=== PATIENT | female | born 1960 | race Caucasian/White ===

== ENCOUNTER 2017-04-14 11:34 | Inpatient (IN) | payer OTHER, MEDICAID ==
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
[2017-04-14 12:26] LABS: % IMMATURE GRANULYOCYTES 0.2 % (0.0-1.1); ABSOLUTE IMMATURE GRANULOCYTES 0.03 10^3/uL (0.00-0.10); ADD DIFF? NO; ADD MORPH? NO; ADD SCAN? NO; ATYPICAL LYMPHOCYTE FLAG 0 (0-99); FRAGMENT RBC FLAG 0 (0-99); HEMATOCRIT 48.4 % (38.0-47.0); HEMOGLOBIN 16.3 g/dL (12.6-16.3); LEFT SHIFT FLG 0 (0-99); LIPEMIA HEMOLYSIS FLAG 80 (0-99); MEAN CELL HEMOGLOBIN 31.2 pg (27.9-34.1); MEAN CELL HEMOGLOBIN CONCENTR. 33.7 g/dL (32.4-36.7); MEAN CELL VOLUME 92.5 fL (81.5-99.8); MEAN PLATELET VOLUME 10.1 fL (8.7-11.7); PLATELET CLUMPS FLAG 0 (0-99); PLATELET COUNT 255 10^3/uL (150-400); RED BLOOD CELL COUNT 5.23 10^6/uL (4.18-5.33); RED CELL DISTRIBUTION WIDTH 12.7 % (11.5-15.2)
[2017-04-14 13:20] LABS: ANION GAP 14 mEq/L (8-16); CALCIUM 11.1 mg/dL (8.5-10.4); CARBON DIOXIDE 23 mEq/l (22-31); CHLORIDE 105 mEq/L (97-110); GLOMERULAR FILTRATION RATE 58; GLUCOSE 95 mg/dL (70-100); POTASSIUM 4.3 mEq/L (3.5-5.2); SODIUM 142 mEq/L (134-144)
[2017-04-14 13:58] LABS: ETHANOL SERUM < 10 mg/dL (0-10); SALICYLATE < 1.0 mg/dL (2.0-20.0)
[2017-04-14] MEDS ORDERED: LORazepam 1 MG TAB PO ONE (14:35)
[2017-04-14] MEDS ORDERED: HALOPERIDOL 5 MG TAB PO ONE (19:20)
[2017-04-14] MEDS ORDERED: DIVALPROEX ER 500 MG TAB PO ONE (19:21)
[2017-04-14 19:37] LABS: ALANINE AMINOTRANSFERASE 40 IU/L (9-52); ALBUMIN 4.4 g/dL (3.5-5.0); ALKALINE PHOSPHATASE 74 IU/L (38-126); ASPARTATE AMINOTRANSFERASE 29 IU/L (14-46); BILIRUBIN,TOTAL 0.9 mg/dL (0.1-1.4); BILIRUBIN-CONJUGATED 0.5 mg/dL (0.0-0.5); BILIRUBIN-UNCONJUGATED 0.4 mg/dL (0.0-1.1); LITHIUM 0.6 mEq/L (0.6-1.2); TOTAL PROTEIN 7.3 g/dL (6.3-8.2)
[2017-04-14] MEDS ORDERED: MAG HYDROX/AL HYDROX/SIMETH 30 ML UDCUP PO PRN (22:37)
[2017-04-14] MEDS ORDERED: MAGNESIUM HYDROXIDE 30 ML UDCUP PO PRN (22:37)
[2017-04-14] MEDS ORDERED: OLANZapine 5 MG TAB PO PRN (22:40)
[2017-04-15] MEDS: ACETAMINOPHEN 325 MG TAB PO PRN (04:00)
[2017-04-15] MEDS ORDERED: FLU VACC QS 2017-18 (3YR+)/PF 0.5 ML SYR (FLUARIX QUAD) IM ONE ×2 (08:25→10:29)
[2017-04-15] MEDS ORDERED: LORazepam 1 MG TAB PO PRN (14:35)
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
[2017-04-15] MEDS: DIVALPROEX ER 500 MG TAB PO SCH (16:28)
[2017-04-15] MEDS: HALOPERIDOL 5 MG TAB PO SCH (16:29)
[2017-04-15] MEDS: BENZTROPINE MESYLATE 1 MG TAB PO SCH (16:31)
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
[2017-04-15] MEDS: LORazepam 1 MG TAB PO PRN (17:46)
[2017-04-15] MEDS: LITHIUM CARBONATE ER 300 MG TAB PO SCH (20:43)
[2017-04-16] MEDS ORDERED: LEVOTHYROXINE 25 MCG TAB PO SCH (06:00)
[2017-04-16] MEDS: DIVALPROEX ER 500 MG TAB PO SCH ×2 (07:30→16:24)
[2017-04-16] MEDS: BENZTROPINE MESYLATE 1 MG TAB PO SCH ×2 (07:37→16:25)
[2017-04-16] MEDS: LITHIUM CARBONATE ER 300 MG TAB PO SCH ×2 (07:37→21:17)
[2017-04-16] MEDS: ACETAMINOPHEN 325 MG TAB PO PRN ×3 (07:37→21:16)
[2017-04-16] MEDS: HALOPERIDOL 5 MG TAB PO SCH ×2 (07:38→16:25)
[2017-04-16 07:45] LABS: % IMMATURE GRANULYOCYTES 0.2 % (0.0-1.1); ABSOLUTE IMMATURE GRANULOCYTES 0.02 10^3/uL (0.00-0.10); ADD DIFF? NO; ADD MORPH? NO; ADD SCAN? NO; ATYPICAL LYMPHOCYTE FLAG 0 (0-99); FRAGMENT RBC FLAG 0 (0-99); HEMATOCRIT 51.6 % (38.0-47.0); HEMOGLOBIN 16.8 g/dL (12.6-16.3); LEFT SHIFT FLG 0 (0-99); LIPEMIA HEMOLYSIS FLAG 80 (0-99); MEAN CELL HEMOGLOBIN 31.4 pg (27.9-34.1); MEAN CELL HEMOGLOBIN CONCENTR. 32.6 g/dL (32.4-36.7); MEAN CELL VOLUME 96.4 fL (81.5-99.8); PLATELET CLUMPS FLAG 20 (0-99); PLATELET COUNT 226 10^3/uL (150-400); RED BLOOD CELL COUNT 5.35 10^6/uL (4.18-5.33); RED CELL DISTRIBUTION WIDTH 12.6 % (11.5-15.2)
[2017-04-16 08:33] LABS: ANION GAP 12 mEq/L (8-16); CALCIUM 10.1 mg/dL (8.5-10.4); CARBON DIOXIDE 26 mEq/l (22-31); CHLORIDE 110 mEq/L (97-110); CREATININE 0.9 mg/dL (0.6-1.0); GLOMERULAR FILTRATION RATE > 60; GLUCOSE 79 mg/dL (70-100); POTASSIUM 4.5 mEq/L (3.5-5.2); SODIUM 148 mEq/L (134-144)
[2017-04-16 10:50] LABS: HEMOGLOBIN A1C 5.2 % (4.0-6.0)
--- NOTE | 2017-04-16 13:35 | SOAPPROG ---
SOAP Progress Note Assessment/Plan: Assessment: Plan: 04/16/17 13:35 Remains acutely psychotic. CCM. Subjective: Pt seen, discussed with staff. Remains nonsensical, disorganized, pressured, delusional. Compliant with meds. Offers no c/o's. Objective: Vital Signs Temp Pulse Resp BP Pulse Ox 36.6 C 96 14 125/57 H 89 L 04/15/17 06:00 04/16/17 06:00 04/16/17 06:00 04/16/17 06:00 04/16/17 06:00 Laboratory Results 04/16/17 04:30 04/16/17 04:30 MSE: Moderately agitated, pleasant and coop. Affect is expansive, elevated. Mood is "good." TP disorganized. TC reveals paranoid and erotomanic delusions , IOR's. - Time Spent With Patient Time Spent With Patient: 15" ICD10 Worksheet Patient Problems: Problems Problem Status Onset Noncompliance with medication regimen Acute Psychosis Acute Chronic obstructive lung disease Active Schizoaffective disorder Active Tobacco user Active
[2017-04-16] MEDS: LORazepam 1 MG TAB PO PRN (13:49)
[2017-04-16] MEDS: LEVOTHYROXINE 25 MCG TAB PO SCH (15:09)
[2017-04-17] MEDS: HALOPERIDOL 5 MG TAB PO SCH ×2 (08:29→16:08)
[2017-04-17] MEDS: DIVALPROEX ER 500 MG TAB PO SCH ×2 (08:33→16:07)
[2017-04-17] MEDS: BENZTROPINE MESYLATE 1 MG TAB PO SCH ×2 (08:35→16:08)
[2017-04-17] MEDS: LITHIUM CARBONATE ER 300 MG TAB PO SCH ×2 (08:35→20:01)
[2017-04-17] MEDS: LEVOTHYROXINE 25 MCG TAB PO SCH (10:53)
[2017-04-17] MEDS: LORazepam 1 MG TAB PO PRN (12:35)
[2017-04-17] MEDS: ACETAMINOPHEN 325 MG TAB PO PRN (13:22)
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
[2017-04-18] MEDS: LORazepam 1 MG TAB PO PRN (01:12)
[2017-04-18] MEDS: LITHIUM CARBONATE ER 300 MG TAB PO SCH ×2 (08:01→20:11)
[2017-04-18] MEDS: HALOPERIDOL 5 MG TAB PO SCH ×2 (08:01→16:12)
[2017-04-18] MEDS: BENZTROPINE MESYLATE 1 MG TAB PO SCH ×2 (08:01→16:12)
[2017-04-18] MEDS: DIVALPROEX ER 500 MG TAB PO SCH ×2 (08:01→16:12)
[2017-04-18] MEDS: LEVOTHYROXINE 25 MCG TAB PO SCH (11:03)
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
[2017-04-18] MEDS: ACETAMINOPHEN 325 MG TAB PO PRN (15:10)
[2017-04-19] MEDS: LEVOTHYROXINE 25 MCG TAB PO SCH (08:31)
[2017-04-19] MEDS: DIVALPROEX ER 500 MG TAB PO SCH ×2 (08:31→18:14)
[2017-04-19] MEDS: HALOPERIDOL 5 MG TAB PO SCH ×2 (08:32→20:51)
[2017-04-19] MEDS: LITHIUM CARBONATE ER 300 MG TAB PO SCH ×2 (08:32→18:14)
[2017-04-19] MEDS: BENZTROPINE MESYLATE 1 MG TAB PO SCH ×2 (08:32→21:12)
[2017-04-19] MEDS: ACETAMINOPHEN 325 MG TAB PO PRN ×3 (08:33→23:11)
[2017-04-19] MEDS: LORazepam 1 MG TAB PO PRN (08:33)
--- NOTE | 2017-04-19 17:22 | SOAPPROG ---
SOAP Progress Note Assessment/Plan: Assessment: Schizoaffective Disorder bipolar type Patient admitted on M-1 hold, then [facility] certification and court ordered medications transferred to inpatient. Unclear when patient last received Paliperidone Trinza injection Patient appears mostly calm but is a poor historian with limited information and illogical at times. Patient reportedly oversedated by medication, slept 11 hours, somnolent at times. Knee Xray shows effusion Plan: Continue [place] 300mg BID, check AM level Continue Depakote 1000mg QAM and 1500mg QHS, check AM level Check AM CMP Reduce Haldol 5mg QAM and 10mg QHS PRN tylenol knee pain, HS warm compress at bedtime Monitor behavior, impulse control Coordinate discharge planning with [facility] case packer and sealer Sleep apnea testing as outpatient after discharge 04/19/17 17:23 04/19/17 17:25 Subjective: "I'm OK" Patient is unable to explain why she was admitted. Denies screaming or disruptive behavior in respite. Denies screaming about a baby. Reports injuring her knee in [facility] many years ago and had chronic knee pain and episodic swelling. Denies other somatic complaints. Agreeable to take medication. Reports feeling stiff and slow at times. Denies thoughts to hurt self or others. Unable to explain how she would obtain housing if not in hospital or in [facility]. Objective: Vital Signs Temp Pulse Resp BP Pulse Ox 36.4 C 100 14 128/69 H 96 04/19/17 06:00 04/19/17 06:00 04/19/17 06:00 04/19/17 06:00 04/19/17 06:00 Laboratory Results 04/16/17 04:30 04/16/17 04:30 Alert obese WF, cooperative. Walks slowly with limp. Speech RRR, loud at times. Thoughts briefly organized with minimal detail. Illogical with loose associations at times. Denies SI or HI or AH. Denies paranoia. Limited insight. Staff report patient slept 11 hours was somnolent during day at times. - Time Spent With Patient Time Spent With Patient: 25 - Pending Discharge Pending Discharge Within 24 Hours: No Pending Discharge Within 48 Hours: No ICD10 Worksheet Patient Problems: Problems Problem Status Onset Noncompliance with medication regimen Acute Psychosis Acute Chronic obstructive lung disease Active Schizoaffective disorder Active Tobacco user Active
[2017-04-19] MEDS ORDERED: HALOPERIDOL 5 MG TAB PO SCH (21:00)
[2017-04-20] MEDS: LEVOTHYROXINE 25 MCG TAB PO SCH (05:18)
[2017-04-20 08:36] LABS: ALANINE AMINOTRANSFERASE 34 IU/L (9-52); ALBUMIN 3.9 g/dL (3.5-5.0); ALKALINE PHOSPHATASE 61 IU/L (38-126); ANION GAP 9 mEq/L (8-16); ASPARTATE AMINOTRANSFERASE 21 IU/L (14-46); BILIRUBIN,TOTAL 0.7 mg/dL (0.1-1.4); CALCIUM 10.7 mg/dL (8.5-10.4); CARBON DIOXIDE 28 mEq/l (22-31); CHLORIDE 105 mEq/L (97-110); CREATININE 0.9 mg/dL (0.6-1.0); GLOMERULAR FILTRATION RATE > 60; GLUCOSE 76 mg/dL (70-100); LITHIUM 0.4 mEq/L (0.6-1.2); POTASSIUM 4.4 mEq/L (3.5-5.2); SODIUM 142 mEq/L (134-144); TOTAL PROTEIN 6.9 g/dL (6.3-8.2)
[2017-04-20] MEDS: LITHIUM CARBONATE ER 300 MG TAB PO SCH ×2 (08:50→19:12)
[2017-04-20] MEDS: HALOPERIDOL 5 MG TAB PO SCH ×2 (08:50→19:12)
[2017-04-20] MEDS: DIVALPROEX ER 500 MG TAB PO SCH ×2 (08:50→19:12)
[2017-04-20] MEDS: BENZTROPINE MESYLATE 1 MG TAB PO SCH ×2 (08:50→19:12)
--- NOTE | 2017-04-20 12:25 | SOAPPROG ---
SOAP Progress Note Assessment/Plan: Assessment: Plan: 04/16/17 13:35 Remains acutely psychotic. CCM. 04/20/17 12:25 Much improved overall. CCM. Likely d/c tomorrow if all is well. Subjective: Pt seen, discussed with staff, chart reviewed, discussed with [facility] liaison. She is cooperative with all therapies inc: groups and meds. Offers not c/o's today. Seen with [facility] liaison and discussed step-down to . Pt is agreeable to this and voices understanding of basic rules and restrictions. Objective: Vital Signs Temp Pulse Resp BP Pulse Ox 36.9 C 97 18 140/83 H 92 04/20/17 06:00 04/20/17 06:00 04/20/17 06:00 04/20/17 06:00 04/20/17 06:00 Laboratory Results 04/16/17 04:30 04/20/17 05:30 MSE: Calm, coop. Affect is slightly elevated with an odd, inappropriate smile. Mood is "good." TP linear for periods of time with some derailment. Much improved over last evaluation. TC reveals some ongoing paranoid, especially in re: to the security of her apartment and belongings. - Time Spent With Patient Time Spent With Patient: 15" ICD10 Worksheet Patient Problems: Problems Problem Status Onset Noncompliance with medication regimen Acute Psychosis Acute Chronic obstructive lung disease Active Schizoaffective disorder Active Tobacco user Active
[2017-04-20] MEDS: NICOTINE POLACRILEX 2 MG GUM B PRN (13:48)
[2017-04-21] MEDS: ASPIRIN 325 MG TAB PO PRN ×2 (00:33→13:34)
[2017-04-21] MEDS: LEVOTHYROXINE 25 MCG TAB PO SCH (06:33)
[2017-04-21 06:57] VITALS: BP 95/61; PULSE 93; RESP 16; TEMP 97.5; O2SAT 90
[2017-04-21] MEDS: HALOPERIDOL 5 MG TAB PO SCH (08:00)
[2017-04-21] MEDS: BENZTROPINE MESYLATE 1 MG TAB PO SCH (08:00)
[2017-04-21] MEDS: DIVALPROEX ER 500 MG TAB PO SCH (08:01)
[2017-04-21] MEDS: LITHIUM CARBONATE ER 300 MG TAB PO SCH (08:05)
[2017-04-21] MEDS: NICOTINE POLACRILEX 2 MG GUM B PRN (09:41)
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
== END 2017-04-21 15:05 | DRG 885 ==
LOC: EDUNIT# → BBEH 21:50
PROVIDERS: ADMIT Psychiatry & Neurology Psychiatry; ATTEND Psychiatry & Neurology Psychiatry
DX: F20.0 Paranoid schizophrenia (principal); Z91.14 Patient's other noncompliance with medication regimen; E87.5 Hyperkalemia; E83.39 Other disorders of phosphorus metabolism; M25.562 Pain in left knee; J44.9 Chronic obstructive pulmonary disease, unspecified; E66.9 Obesity, unspecified; F17.200 Nicotine dependence, unspecified, uncomplicated; Z68.39 Body mass index [BMI] 39.0-39.9, adult
CPT/HCPCS: 80305; 97110-GP; 97161-GP; G0008; G0480; G8978-GP-CI; G8979-GP-CI; G8980-GP-CI

== ENCOUNTER 2018-01-27 15:43 | Inpatient (IN) | payer MEDICAID, OTHER ==
--- NOTE | 2018-01-27 16:05 | EDPHY ---
H & P Time Seen by Provider: 01/27/18 15:47 HPI/ROS: CHIEF COMPLAINT: Court ordered mental health hold HISTORY OF PRESENT ILLNESS: Per the court order the patient has not shown up for her last 9 medication treatments. Per discharge summary dated 04/21/2017 has bipolar type schizoaffective disorder and patient denies any medical complaints to me. She denies having any mental health diagnosis, despite clear documentation of schizoaffective disorder in our computer chart. She is very evasive and reluctant to make eye contact with me. REVIEW OF SYSTEMS: Eye: no change in vision ENT: no sore throat Cardiac: no chest pain or syncope Pulmonary: no cough or SOB Abdomen: no vomiting, diarrhea, abdominal pain Musculoskeletal: no back pain Skin: no rash Neuro: no headache Constitutional: no fever : no urinary symptoms A comprehensive 10 point review of systems is otherwise negative aside from elements mentioned in the history of present illness. PAST MEDICAL HISTORY: Discharge summary dated 04/21/2017 notes schizoaffective disorder. Consultation by Dr. De Santiago from that admission also notes cholecystitis, pancreatitis, COPD, tubal ligation. Cholecystectomy. Social history: Tobacco smoker. Temperature 36.7 degrees. General Appearance: Alert and conversant, cooperative. Eyes: No scleral icterus. ENT, Mouth: Normal mucous membranes. Respiratory: Normal respiratory effort, breath sounds equal, slight expiratory wheeze bilaterally but no focal lung sounds and speaks in full sentences. Cardiovascular: Regular rate and rhythm. Gastrointestinal: Abdomen is soft and non tender. Neurological: Alert, face symmetric, normal motor and sensory in extremities. Skin: Warm and dry, no rashes. Musculoskeletal: No peripheral edema. Psychiatric: Flat affect, denies suicidal or homicidal ideation, denies hearing voices Emergency Department course/MDM: Screening labs, mental health evaluation, nicotine gum. 1656: Medically cleared for psychiatric evaluation. Placed on a mental health hold by myself for being very evasive, giving incorrect answers to questions; in the context of not attending her scheduled medication appointments and treatments. Likely gravely disabled, maintaining she does not have any psychiatric illness when there is clear documentation to the contrary. 1899: The patient will be transferred to [facility] for inpatient psychiatric hospital bed not available at this facility, in stable condition; accepting physician is Dr. Ramon. EMTALA form completed. Smoking Status: Current every day smoker Constitutional: Initial Vital Signs Heart Rate 115 H 07/19/18 15:51 Respiratory Rate 18 01/27/18 15:51 Blood Pressure 127/90 H 01/27/18 15:51 O2 Sat (%) 92 01/27/18 15:51 O2 Delivery Mode Room Air Allergies/Adverse Reactions: carrots Allergy (Uncoded 04/25/13 22:30) liver Allergy (Uncoded 04/25/13 22:30) peas Allergy (Uncoded 04/25/13 22:30) Home Medications: Medication Instructions Recorded Aspirin [Aspirin 325 mg (*)] 325 mg PO DAILY PRN 04/14/17 Benztropine Mesylate [Cogentin] 1 mg PO BID@08,16 #60 tab 04/21/17 Divalproex ER [Depakote ER 500 MG 1,000 mg PO DAILY #60 tab 04/21/17 (*)] Divalproex ER [Depakote ER 500 MG 1,500 mg PO DAILY@16 #90 tab 04/21/17 (*)] Haloperidol [Haldol 5 MG (*)] 5 mg PO DAILY #30 tab 04/21/17 Haloperidol [Haldol 5 MG (*)] 15 mg PO DAILY@16 #90 tab 04/21/17 Levothyroxine [Synthroid 25 mcg 25 mcg PO DAILY06 #30 tab 04/21/17 (*)] [place] Carbonate ER [Lithobid 300 300 mg PO BID #60 tab 04/21/17 mg (*)] Medical Decision Making - Data Points Laboratory Results: Laboratory Results 01/27/18 16:25 01/27/18 16:25 01/27/18 01/27/18 01/27/18 16:25 16:25 16:25 WBC 9.20 10^3/uL 10^3/uL (3.80-9.50) RBC 5.34 10^6/uL H 10^6/uL (4.18-5.33) Hgb 17.0 g/dL H g/dL (12.6-16.3) Hct 49.8 % H % (38.0-47.0) MCV 93.3 fL fL (81.5-99.8) MCH 31.8 pg pg (27.9-34.1) MCHC 34.1 g/dL g/dL (32.4-36.7) RDW 12.7 % % (11.5-15.2) Plt Count 265 10^3/uL 10^3/uL (150-400) MPV 9.9 fL fL (8.7-11.7) Neut % (Auto) 57.8 % % (39.3-74.2) Lymph % (Auto) 30.1 % % (15.0-45.0) [place] % (Auto) 8.3 % % (4.5-13.0) Eos % (Auto) 2.7 % % (0.6-7.6) Baso % (Auto) 0.8 % % (0.3-1.7) Nucleat RBC Rel Count 0.0 % % (0.0-0.2) Absolute Neuts (auto) 5.32 10^3/uL 10^3/uL (1.70-6.50) Absolute Lymphs (auto) 2.77 10^3/uL 10^3/uL (1.00-3.00) Absolute Monos (auto) 0.76 10^3/uL 10^3/uL (0.30-0.80) Absolute Eos (auto) 0.25 10^3/uL 10^3/uL (0.03-0.40) Absolute Basos (auto) 0.07 10^3/uL 10^3/uL (0.02-0.10) Absolute Nucleated RBC 0.00 10^3/uL 10^3/uL (0-0.01) Immature Gran % 0.3 % % (0.0-1.1) Immature Gran # 0.03 10^3/uL 10^3/uL (0.00-0.10) Sodium 137 mEq/L mEq/L (135-145) Potassium 4.1 mEq/L mEq/L (3.3-5.0) Chloride 103 mEq/L mEq/L (97-110) Carbon Dioxide 24 mEq/l mEq/l (22-31) Anion Gap 10 mEq/L mEq/L (8-16) BUN 10 mg/dL mg/dL (7-23) Creatinine 1.0 mg/dL mg/dL (0.6-1.0) Estimated GFR 58 Glucose 95 mg/dL mg/dL (70-100) Calcium 10.3 mg/dL mg/dL (8.5-10.4) Urine Opiates Screen NEGATIVE (NEGATIVE) Urine Barbiturates NEGATIVE (NEGATIVE) Ur Phencyclidine Scrn NEGATIVE (NEGATIVE) Ur Amphetamine Screen NEGATIVE (NEGATIVE) U Benzodiazepines Scrn NEGATIVE (NEGATIVE) Urine Cocaine Screen NEGATIVE (NEGATIVE) U Marijuana (THC) Screen NEGATIVE (NEGATIVE) Ethyl Alcohol < 10 mg/dL mg/dL (0-10) Medications Given: Discontinued Medications Nicotine Polacrilex (Nicorette) 2 mg B EDNOW ONE Stop: 01/27/18 16:08 Last Admin: 01/27/18 17:26 Dose: 2 mg Departure - Departure Disposition: [facility] IP Clinical Impression: Schizoaffective disorder Condition: Good Instructions: Schizoaffective Disorder (ED) Referrals: Nam Wilkinson MD [Non Staff Provider (MD)] - As per Instructions
[2018-01-27] MEDS ORDERED: NICOTINE POLACRILEX 2 MG GUM B ONE (16:07)
[2018-01-27 16:41] LABS: PLATELET COUNT 265 10^3/uL (150-400)
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
--- NOTE | 2018-01-27 20:19 | ASMTTCLDSP ---
[facility] Discharge Disposition Disposition: Answers: Admit Discharge Concerns/Recommendations: Notes: In consultation with [facility] ED physician, Issac Davidson MD, and on-call psychiatrist, Tiera Ramon MD, both concurred that pt appears to meet 27-65 criteria requiring psychiatric hospitalization as pt appears to be gravely disabled due to a mental illness condition. Pt was given the 3N prohibited belongings list while in the ED. Was patient given the Answers: Yes Inpatient Behavioral Health Prohibited Belongings List while in the ED? For inpatient Tiera Ramon mD admission, the following psychiatrist agreed to accept patient for admission to [facility] Date and time M1 hold 01/27/2018 04:51 PM vacated (time format is hh:mm): Type of Hold: Answers: M1/72-hour Hold Hold initiated by: Answers: ED Physician Date Signed: 01/27/2018 08:19 PM Electronically Signed By:Jeanie Krishnamurthy
[2018-01-27] MEDS ORDERED: MAG HYDROX/AL HYDROX/SIMETH 30 ML UDCUP PO PRN (22:20)
[2018-01-27] MEDS ORDERED: NICOTINE POLACRILEX 2 MG GUM B PRN (22:20)
[2018-01-27] MEDS ORDERED: MAGNESIUM HYDROXIDE 30 ML UDCUP PO PRN (22:20)
[2018-01-27] MEDS ORDERED: OLANZapine DISINTEGR 5 MG TAB PO PRN (22:20)
[2018-01-27] MEDS ORDERED: LORazepam 0.5 MG TAB PO PRN (22:20)
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
[2018-01-28] MEDS: NICOTINE 21 MG/24 HR PATCH TD SCH (09:33)
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
[2018-01-28] MEDS ORDERED: ALBUTEROL 60 PUFFS/8 GM MDI IH PRN (13:43)
--- NOTE | 2018-01-28 14:33 | BCON ---
[f rep ] [facility] CONSULTATION INTERNAL MEDICINE CONSULTATION DATE OF CONSULTATION: 01/28/2018 REFERRING PHYSICIAN: Tiera Ramon MD REASON FOR REFERRAL: Medical clearance for inpatient [facility] stay. HISTORY OF PRESENT ILLNESS: This patient was brought to the emergency department on an M1 hold by police for court-ordered medication. She had not been seeing her psychiatrist or taking her medications for a period of months. In the emergency department, she denied any history of mental illness, but she was admitted to inpatient [facility] for further psychiatric care. She currently has no acute complaints. PAST MEDICAL HISTORY: 1. She has mental health diagnoses in the chart of schizoaffective disorder and bipolar disorder. 2. COPD. 3. Cholecystitis. 4. Pancreatitis. 5. Dyslipidemia. PAST SURGICAL HISTORY: She has had a cholecystectomy. MEDICATIONS: Prior to admission: 1. Aspirin 325 mg p.o. daily p.r.n. 2. Benztropine 1 mg p.o. b.i.d. 3. Divalproex ER 1000 mg in the morning and 1500 mg in the afternoon at 1600. 4. Haloperidol 5 mg p.o. in the morning and 15 mg p.o. at 1600. 5. Levothyroxine 25 mcg p.o. daily. 6. [place] 300 mg p.o. b.i.d. ALLERGIES: There are no known medication allergies. SOCIAL HISTORY: She is a smoker. She reports that she lives alone in an apartment. She does not work. Per review of the medical records, there is an adult daughter who is homeless and stays with her sometimes. FAMILY HISTORY: Noncontributory. REVIEW OF SYSTEMS: She reports left hip pain and reports that she had a hip fracture when she was 13 and that she fractured it again 2 years ago, but has had no diagnostics or procedures. She denies cough or dyspnea. She reports she has constipation. She denies fevers or chills. She denies weight change. Otherwise, a 10-point review of systems is negative. PHYSICAL EXAM: VITAL SIGNS: Blood pressure is 110/72. Heart rate is 103. Respiratory rate is 14. Oxygen saturation is 92% on room air. Temperature is 36.9 degrees centigrade. Her weight is 122.5 kg, for a body mass index of 39.9. GENERAL: This is an obese woman, napping in bed, easily awakened, cooperative and in no acute distress. HEENT: Extraocular movements are intact. Pupils are equal, round, and reactive to light. Mucous membranes are moist. She has halitosis. Dentition is in poor condition. She has a crowded airway, Mallampati class 4. NECK: Supple. HEART: There is a regular rate and rhythm, with no murmurs, rubs, or gallops. LUNGS: Clear to auscultation bilaterally. ABDOMEN: Benign. EXTREMITIES: There is no cyanosis or clubbing. There is trace to 1+ edema bilaterally in the pretibial area of her lower legs. NEUROLOGIC: She is alert and oriented x3. Cranial nerves 2-12 are grossly intact. There is no focal weakness. Sensation is intact to light touch, and gait is within normal limits. LABORATORY STUDIES: From the emergency department, CBC revealed elevated hemoglobin and hematocrit at 17 and 49 and otherwise was within normal limits. Serum chemistry revealed normal renal function and electrolytes, normal liver functions. Hemoglobin A1c was 5.6. She had dyslipidemia with an elevated cholesterol at 239, an LDL of 177, and an HDL of 36. Toxicology screen in the serum was negative for ethyl alcohol and in the urine was negative for any substances of abuse. ASSESSMENT/RECOMMENDATIONS: 1. Mental health issues pending further evaluation and management per Psychiatry and the mental health team. 2. Obesity. Advise consideration of avoiding medications which would promote further weight gain; however, psychosocial stabilization takes first priority. 3. Dyslipidemia. Her 10-year cardiovascular risk is 6.5, and this does not merit treatment with a statin at this time. Were she 60 years old, it would be 7.9, and a statin would be indicated. This is per the [employer] [place] [employer] updated 2017 guidelines. 4. Chronic obstructive pulmonary disease. I have added an albuterol inhaler in case she gets shortness of breath as she has an audible wheeze in the left upper lobe. 5. Tobacco dependence syndrome. She was encouraged to stop smoking. 6. Constipation. Per her report, milk of magnesia is prescribed, and that is appropriate. 7. Polycythemia. Query whether this is related to hypoxia either due to chronic obstructive pulmonary disease or nocturnally as she is at risk for obstructive sleep apnea. She can follow up with her primary care provider. Advise consideration of referral for a sleep study to rule out obstructive sleep apnea. I see no medical contraindications to this patient's continued stay on the inpatient behavioral health unit or to any psychiatric medications or procedures. Thank you very much for including me in the care of this patient and please do not hesitate to contact me or the hospitalist service should there be need for further medical evaluation. /[id number]/MODL MTDD
[2018-01-29] MEDS: ACETAMINOPHEN 325 MG TAB PO PRN (01:45)
[2018-01-29] MEDS: NICOTINE 21 MG/24 HR PATCH TD SCH (07:59)
[2018-01-29] MEDS ORDERED: ATORVASTATIN CALCIUM 40 MG TAB PO SCH (09:00)
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
[2018-01-29] MEDS ORDERED: HALOPERIDOL LACT 5 MG/ML INJ IM PRN (17:50)
--- NOTE | 2018-01-29 18:00 | SOAPPROG ---
SOAP Progress Note Assessment/Plan: Assessment: 57 yo woman BIB [facility] after welfare check. Patient is on LTC and court ordered involuntary medications, but has missed last 9 appointments with providers at [facility]. Plan: 01/29/18 17:54 1. Will order Depakote ER 1,500mg QHS. She was prescribed Depakote 500TID and 250mg @HS. 2. Will order Haldol 5mg PO Daily and 10mg @1700 per her outpatient regimen. Since she is on court order for involuntary meds that expires on 04/15/18, will order IM Haldol to be given if patient refuses PO. 3. Will also order Cogentin 1mg BID per her outpatient regimen. 4. Patient is also supposed to be taking Synthroid 25mcg. 5. In past, she has been on Simvastatin, but Dr. De Santiago indicated her Cardiac score did not merit Statin at this point in time. Will refer to PCP to re- evaluate after discharge. 6. Patient has missed numerous recent appointments with [facility]. She has h/o noncompliance which is why Dr. Wilkinson petitioned court to have LTC and involuntary treatment order extended past it's expiration in 10/2017. The court granted the petition on 09/15/17, and patient's LTC and involuntary treatment order now continues until 04/15/18. Subjective: Met with patient, reviewed chart and d/w staff. Patient was wearing day [facility] hospital gown, had not showered or combed her hair. She is missing several teeth. She insisted that "Dr. Wilkinson told me in April I only had to take medicine for 3 more months." Patient states she stopped taking meds b/c "that's what Dr. Wilkinson told me to do." She either is not admitting or doesn't know that her LTC and order for involuntary treatment was extended until 04/2018. It's possible that if her last appointment at [facility] was in 04/2018, she never found out that her LTC was extended. She has refused to take meds during this admission. Objective: Vital Signs Temp Pulse Resp BP Pulse Ox 36.6 C 88 16 133/69 H 94 01/29/18 06:00 01/29/18 06:00 01/29/18 06:00 01/29/18 06:01/29/18 06:00 MSE: Affect: Euthymic Mood: "OK" TP: Disorganized TC: Denies any SI/HI, denies AH/VH, but staff report patient has been talking to herself Insight/ Judgment: Impaired - Time Spent With Patient Time Spent With Patient: 15" - Pending Discharge Pending Discharge Within 24 Hours: No Pending Discharge Within 48 Hours: No ICD10 Worksheet Patient Problems: Problems Problem Status Onset Schizoaffective disorder Acute Chronic obstructive lung disease Active Tobacco user Active Noncompliance with medication regimen Acute Psychosis Acute
[2018-01-29] MEDS: DIVALPROEX ER 500 MG TAB PO SCH ×2 (20:29→20:40)
[2018-01-29] MEDS: BENZTROPINE MESYLATE 1 MG TAB PO SCH ×2 (20:36→20:40)
[2018-01-30] MEDS: LEVOTHYROXINE 25 MCG TAB PO SCH (07:47)
[2018-01-30] MEDS: NICOTINE 21 MG/24 HR PATCH TD SCH (07:47)
[2018-01-30] MEDS: HALOPERIDOL 5 MG TAB PO SCH ×4 (07:47→17:41)
[2018-01-30] MEDS: BENZTROPINE MESYLATE 1 MG TAB PO SCH ×2 (07:47→22:18)
[2018-01-30] MEDS ORDERED: HALOPERIDOL LACT 5 MG/ML INJ IM PRN (17:00)
--- NOTE | 2018-01-30 17:13 | SOAPPROG ---
SOAP Progress Note Assessment/Plan: Assessment: 57 yo woman BIB [facility] after welfare check. Patient is on LTC and court ordered involuntary medications, but has missed last 9 appointments with providers at [facility]. Plan: 01/29/18 17:54 1. Will order Depakote ER 1,500mg QHS. She was prescribed Depakote 500TID and 250mg @HS. 2. Will order Haldol 5mg PO Daily and 10mg @1700 per her outpatient regimen. Since she is on court order for involuntary meds that expires on 04/15/18, will order IM Haldol to be given if patient refuses PO. 3. Will also order Cogentin 1mg BID per her outpatient regimen. 4. Patient is also supposed to be taking Synthroid 25mcg. 5. In past, she has been on Simvastatin, but Dr. De Santiago indicated her Cardiac score did not merit Statin at this point in time. Will refer to PCP to re- evaluate after discharge. 6. Patient has missed numerous recent appointments with [facility]. She has h/o noncompliance which is why Dr. Wilkinson petitioned court to have LTC and involuntary treatment order extended past it's expiration in 10/2017. The court granted the petition on 09/15/17, and patient's LTC and involuntary treatment order now continues until 04/15/18. 01/30/18 17:07 1. Patient refused to take Depakote last night. MD reminded patient that she is on court order for involuntary medications until 04/15/18, but patient said she didn't care. 2. Patient initially refused Haldol today, but when RN showed patient the LTC extension and involuntary meds order from court, patient consented. 3. Patient continues to state that LTC is "" and complain that she can't be given meds against her will. MD reminded patient that since she didn't keep her appointments with Dr. Wilkinson, she didn't realize he had filed an extension of her LTC and that the court granted his petition. She said, "oh, I didn't know he did that." 4. MD encouraged patient to keep her appointments with providers at [facility] so they can see how well she does and maybe they won't need to keep extending her LTC. 5. CC to find out when last injection of Invega Trinza was given. 6. LTC Subjective: Met with patient, reviewed chart and d/w staff. Patient was cooperative and pleasant, however, she denied that she was on LTC. She insisted that "I don't need to take medication b/c her LTC had . showed patient documents indicating court had extended LTC and involuntary meds until 04/15/18. Patient said, "oh," and agreed to take Haldol, but not Depakote. She doesn't remember how long ago she her last Invega Trinza injection. CC will need to contact [facility] on 02/03/18 to find out. Patient denies thought, plan and intent to harm herself or anyone else. Objective: Vital Signs Temp Pulse Resp BP Pulse Ox 36.4 C 105 H 16 103/66 91 L 01/30/18 06:00 01/30/18 06:00 01/30/18 06:00 01/30/18 06:00 01/30/18 06:00 MSE: Affect: Smiling, laughing at inappropriate times Mood: "Good" TP: Tangential, illogical TC: Denies any SI/HI, no AH/VH Insight/Judgment: Poor - Time Spent With Patient Time Spent With Patient: 20" - Pending Discharge Pending Discharge Within 24 Hours: No Pending Discharge Within 48 Hours: No ICD10 Worksheet Patient Problems: Problems Problem Status Onset Schizoaffective disorder Acute Chronic obstructive lung disease Active Tobacco user Active Noncompliance with medication regimen Acute Psychosis Acute
[2018-01-30] MEDS: DIVALPROEX ER 500 MG TAB PO SCH (22:18)
[2018-01-31] MEDS: BENZTROPINE MESYLATE 1 MG TAB PO SCH ×2 (07:20→21:34)
[2018-01-31] MEDS: LEVOTHYROXINE 25 MCG TAB PO SCH (07:20)
[2018-01-31] MEDS: NICOTINE 21 MG/24 HR PATCH TD SCH ×2 (07:43→12:47)
[2018-01-31] MEDS: HALOPERIDOL 5 MG TAB PO SCH ×2 (07:48→18:04)
--- NOTE | 2018-01-31 07:58 | SOAPPROG ---
SOAP Progress Note Assessment/Plan: Assessment: Schizoaffective disorder. Currently delusional. Refusing SAMMY meds (Depakote). No improvement noted. (see subjective/objective note). Patient is not safe to discharge at this time as patient continues to exhibit signs of psychosis. Patient requires continued inpatient care because of current psychosis, and requires inpatient level of care to stabilize in order to no longer be gravely disabled due to mental illness. Patient could benefit from continued inpatient hospitalization for crisis stabilization, safety, and medication evaluation. Plan: Review psychotropic medication treatment informed consent and recommendations. After reviewing options, risk and benefits, patient agrees to continue medications with the following changes. No medication changes at this time as more time is needed to determine ongoing tolerability and efficacy. Plan is to continue to observe patient for response and side effects from medications, and ongoing monitoring and evaluation. Contact Dr. Wilkinson's office to see when her last Invega Trinza shot was and to coordinate treatment; inquire about patient' s baseline to determine efficacy of current medications. Next steps are for patient to meet with vp care management to plan a safe discharge plan and establish outpatient services for ongoing treatment. Consider discharge on or Wednesday if patient is in stable condition, safe, and has a safe discharge plan. PSYCHOTROPIC MEDICATION TREATMENT INFORMED CONSENT and RECOMMENDATIONS: Review nature of condition, diagnosis, and prognosis. Review nature and purpose of psychotropic medication treatment. Review type of psychotropic medications being ordered. Review risk and benefits of psychotropic medication treatment. Review probable length of time patient will need to take medications. Review risk and benefits of not undergoing psychotropic medication treatment. Review alternative treatments to psychotropic medications. Review psychotropic medications contraindications, drug-drug interactions, side effects, and importance of reporting any side effects to a psychiatric provider or nurse during inpatient hospitalization, and upon discharge to patients psychiatric outpatient provider, primary care provider, or other health senior care assistant. Review importance of asking a nurse, psychiatric provider, or primary care provider any questions or problems concerning the psychotropic medications. Verify patient understands the information that has been provided, and understands, accepts, and agrees to psychotropic medications. Review patients safety plan and importance of patient to report to staff while hospitalized if patient is ever a danger to self/others, or unable to care for self, and upon discharge, the importance for patient to contact [facility] or [facility], or go to the nearest emergency room, if patient is ever a danger to self/others, or unable to care for self. Recommend that upon discharge patient establish medication management treatment with a psychiatric provider, establishes routine therapy appointments, and follow-up with primary care provider. Verify patient understands and agrees to these recommendations. 01/31/18 07:58 Subjective: Following up with patient for evaluation of psychosis and safety. Patient reports, "Are you a medical doctor because I need to speak to someone about what antipsychotics do to a 3 month old fetus. I know I am because the fetus is talking to me, her name is Akosua." Objective: Vital Signs Temp Pulse Resp BP Pulse Ox 36.3 C 97 20 123/71 H 93 01/31/18 06:00 01/31/18 06:00 01/31/18 06:00 01/31/18 06:00 01/31/18 06:00 NURSING REPORT: Consulted with nursing for update on patients progress in treatment. Nurses report patient is not engaged in treatment, is attending some groups, slept 8 hours, expresses the following psychiatric symptoms: none, exhibits the following psychiatric symptoms: delusional; is eating all meals, is taking not medications as prescribed; patient refused Depakote over the weekend. Patient reports no report of side effects, with no s/s of EPS/ akathisia, and denies SI/HI, A/V hallucinations. 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 Wilkinson. Gathering more collateral from OP provider including medication regimen and when next Invega IM is due. The patient is a well-nourished female looking stated chronological age. Attire is appropriate and dress is casual. Grooming status is inappropriate and disheveled. Ambulation is independent. Gait is normal and coordinated. Posture is normal and relaxed. Eye contact is appropriate, and adequate. Motor activity is appropriate with purposeful, organized, coordinated movements ; with no involuntary movements. Attitude is uncooperative and defensive. Patient appears disinterested and does not relate well to this interviewer. Language production is spontaneous. R/R/V normal. Articulation is clear. Patient reports mood as okay with blunted, and incongruent, inappropriate affect. Patients thought process is non-linear, disorganized, illogical. Associations are loose. Patient does not report suicidal/homicidal thoughts, ideas, or plans. Patient denies auditory, visual hallucinations. Patient reports delusions. Patient does not appear to be attending to internal stimuli. Patients attention and concentration are poor. Patient is oriented to person, place. Patients insight is poor. Patients judgment is poor. - Time Spent With Patient Time Spent With Patient: 15 minutes, met with patient individually. - Pending Discharge Pending Discharge Within 24 Hours: No Pending Discharge Within 48 Hours: No ICD10 Worksheet Patient Problems: Problems Problem Status Onset Schizoaffective disorder Acute Chronic obstructive lung disease Active Tobacco user Active Noncompliance with medication regimen Acute Psychosis Acute
[2018-01-31] MEDS: DIVALPROEX ER 500 MG TAB PO SCH (21:34)
[2018-02-01] MEDS: HALOPERIDOL 5 MG TAB PO SCH ×2 (08:22→17:17)
[2018-02-01] MEDS: BENZTROPINE MESYLATE 1 MG TAB PO SCH ×2 (08:22→20:42)
--- NOTE | 2018-02-01 08:22 | SOAPPROG ---
SOAP Progress Note Assessment/Plan: Assessment: Schizoaffective disorder. Currently delusional. Refusing SAMYM meds (Depakote). No improvement noted. (see subjective/objective note). Patient is not safe to discharge at this time as patient continues to exhibit signs of psychosis. Patient requires continued inpatient care because of current psychosis, and requires inpatient level of care to stabilize in order to no longer be gravely disabled due to mental illness. Patient could benefit from continued inpatient hospitalization for crisis stabilization, safety, and medication evaluation. Plan: Review psychotropic medication treatment informed consent and recommendations. No medication changes at this time as more time is needed to determine ongoing tolerability and efficacy. Plan is to continue to observe patient for response and side effects from medications, and ongoing monitoring and evaluation. Next steps are for patient to meet with transitions rn care coordinator to plan a safe discharge plan and establish outpatient services for ongoing treatment. Consider discharge Wednesday if patient is in stable condition, safe, and has a safe discharge plan. PSYCHOTROPIC MEDICATION TREATMENT INFORMED CONSENT and RECOMMENDATIONS: Review nature of condition, diagnosis, and prognosis. Review nature and purpose of psychotropic medication treatment. Review type of psychotropic medications being ordered. Review risk and benefits of psychotropic medication treatment. Review probable length of time patient will need to take medications. Review risk and benefits of not undergoing psychotropic medication treatment. Review alternative treatments to psychotropic medications. Review psychotropic medications contraindications, drug-drug interactions, side effects, and importance of reporting any side effects to a psychiatric provider or nurse during inpatient hospitalization, and upon discharge to patients psychiatric outpatient provider, primary care provider, or other health respiratory care specialist. Review importance of asking a nurse, psychiatric provider, or primary care provider any questions or problems concerning the psychotropic medications. Verify patient understands the information that has been provided, and understands, accepts, and agrees to psychotropic medications. Review patients safety plan and importance of patient to report to staff while hospitalized if patient is ever a danger to self/others, or unable to care for self, and upon discharge, the importance for patient to contact [facility] or [facility], or go to the nearest emergency room, if patient is ever a danger to self/others, or unable to care for self. Recommend that upon discharge patient establish medication management treatment with a psychiatric provider, establishes routine therapy appointments, and follow-up with primary care provider. Verify patient understands and agrees to these recommendations. 02/01/18 08:20 Subjective: Following up with patient for evaluation of psychosis and safety. Patient reports, "I dont need to be on a medication for my mood, there is nothing wrong with my mood. I am not going to take the Depakote or lithium. I also do not want to take the antipsychotics due to my 3 month old fetus, her name is Akosua , and I know I am because she is talking to me." Objective: Vital Signs Temp Pulse Resp BP Pulse Ox 36.4 C 76 12 113/64 90 L 02/01/18 06:00 02/01/18 06:00 02/01/18 06:00 02/01/18 06:00 02/01/18 06:00 NURSING REPORT: Consulted with nursing for update on patients progress in treatment. Nurses report patient is not engaged in treatment, is attending some groups, slept 8 hours, expresses the following psychiatric symptoms: none, exhibits the following psychiatric symptoms: delusional; is eating all meals, is taking not medications as prescribed; patient refuses Depakote. Patient reports no report of side effects, with no s/s of EPS/akathisia, and denies SI/ HI, A/V hallucinations. 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 Wilkinson. CALL WITH OP PSYCHIATRIST: Dr. Wilkinson reports patient requires mood stabilizer due to history of dada, and suggests either Depakote or lithium. Dr. Wilkinson reports patient at baseline, and even when adherent to medications presents with delusional thinking. The patient is a well-nourished female looking stated chronological age. Attire is appropriate and dress is casual. Grooming status is inappropriate and disheveled. Ambulation is independent. Gait is normal and coordinated. Posture is normal and relaxed. Eye contact is appropriate, and adequate. Motor activity is appropriate with purposeful, organized, coordinated movements ; with no involuntary movements. Attitude is uncooperative and defensive. Patient appears disinterested and does not relate well to this interviewer. Language production is spontaneous. R/R/V normal. Articulation is clear. Patient reports mood as okay with blunted, and incongruent, inappropriate affect. Patients thought process is non-linear, disorganized, illogical. Associations are loose. Patient does not report suicidal/homicidal thoughts, ideas, or plans. Patient denies auditory, visual hallucinations. Patient reports delusions. Patient does not appear to be attending to internal stimuli. Patients attention and concentration are poor. Patient is oriented to person, place. Patients insight is poor. Patients judgment is poor. - Time Spent With Patient Time Spent With Patient: 15 minutes, met with patient individually. - Pending Discharge Pending Discharge Within 24 Hours: No Pending Discharge Within 48 Hours: No ICD10 Worksheet Patient Problems: Problems Problem Status Onset Schizoaffective disorder Acute Chronic obstructive lung disease Active Tobacco user Active Noncompliance with medication regimen Acute Psychosis Acute
[2018-02-01] MEDS: LEVOTHYROXINE 25 MCG TAB PO SCH (10:21)
[2018-02-01] MEDS: DIVALPROEX ER 500 MG TAB PO SCH (21:30)
--- NOTE | 2018-02-02 08:09 | SOAPPROG ---
SOAP Progress Note Assessment/Plan: Assessment: Schizoaffective disorder. Currently delusional. Improvement noted; notably willingness to take medications as prescribed (see subjective/objective note). Patient is not safe to discharge at this time as patient continues to exhibit signs of psychosis. Patient requires continued inpatient care because of current psychosis, and requires inpatient level of care to stabilize in order to no longer be gravely disabled due to mental illness. Patient could benefit from continued inpatient hospitalization for crisis stabilization, safety, and medication evaluation. Plan: Review psychotropic medication treatment informed consent and recommendations. No medication changes at this time as more time is needed to determine ongoing tolerability and efficacy. Plan is to continue to observe patient for response and side effects from medications, and ongoing monitoring and evaluation. Next steps are for patient to meet with health care facilities inspector to plan a safe discharge plan and establish outpatient services for ongoing treatment. Consider discharge Wednesday if patient is in stable condition, safe, and has a safe discharge plan. PSYCHOTROPIC MEDICATION TREATMENT INFORMED CONSENT and RECOMMENDATIONS: Review nature of condition, diagnosis, and prognosis. Review nature and purpose of psychotropic medication treatment. Review type of psychotropic medications being ordered. Review risk and benefits of psychotropic medication treatment. Review probable length of time patient will need to take medications. Review risk and benefits of not undergoing psychotropic medication treatment. Review alternative treatments to psychotropic medications. Review psychotropic medications contraindications, drug-drug interactions, side effects, and importance of reporting any side effects to a psychiatric provider or nurse during inpatient hospitalization, and upon discharge to patients psychiatric outpatient provider, primary care provider, or other health career technical counselor. Review importance of asking a nurse, psychiatric provider, or primary care provider any questions or problems concerning the psychotropic medications. Verify patient understands the information that has been provided, and understands, accepts, and agrees to psychotropic medications. Review patients safety plan and importance of patient to report to staff while hospitalized if patient is ever a danger to self/others, or unable to care for self, and upon discharge, the importance for patient to contact [facility] or [facility], or go to the nearest emergency room, if patient is ever a danger to self/others, or unable to care for self. Recommend that upon discharge patient establish medication management treatment with a psychiatric provider, establishes routine therapy appointments, and follow-up with primary care provider. Verify patient understands and agrees to these recommendations. 02/02/18 08:09 Subjective: Following up with patient for evaluation of psychosis and safety. Patient reports, "Ill take the damn Depakote if it gets me out of here sooner." Patient expresses motivation to take Depakote as prescribed with level Wednesday. Objective: Vital Signs Temp Pulse Resp BP Pulse Ox 36.4 C 82 14 112/64 94 02/02/18 06:00 02/02/18 06:00 02/02/18 06:00 02/02/18 06:00 02/02/18 06:00 NURSING REPORT: Consulted with nursing for update on patients progress in treatment. Nurses report patient is not engaged in treatment, is attending some groups, slept 8 hours, expresses the following psychiatric symptoms: none, exhibits the following psychiatric symptoms: delusional, irritable; is eating all meals. Patient reports no report of side effects, with no s/s of EPS/ akathisia, and denies SI/HI, A/V hallucinations. 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 Wilkinson. The patient is a well-nourished female looking stated chronological age. Attire is appropriate and dress is casual. Grooming status is inappropriate and disheveled. Ambulation is independent. Gait is normal and coordinated. Posture is normal and relaxed. Eye contact is appropriate, and adequate. Motor activity is appropriate with purposeful, organized, coordinated movements ; with no involuntary movements. Attitude is uncooperative and defensive. Patient appears disinterested and does not relate well to this interviewer. Language production is spontaneous. R/R/V normal. Articulation is clear. Patient reports mood as okay with blunted, and incongruent, inappropriate affect. Patients thought process is non-linear, disorganized, illogical. Associations are loose. Patient does not report suicidal/homicidal thoughts, ideas, or plans. Patient denies auditory, visual hallucinations. Patient reports delusions. Patient does not appear to be attending to internal stimuli. Patients attention and concentration are poor. Patient is oriented to person, place. Patients insight is poor. Patients judgment is poor. - Time Spent With Patient Time Spent With Patient: 15 minutes, met with patient individually. - Pending Discharge Pending Discharge Within 24 Hours: No Pending Discharge Within 48 Hours: No ICD10 Worksheet Patient Problems: Problems Problem Status Onset Schizoaffective disorder Acute Chronic obstructive lung disease Active Tobacco user Active Noncompliance with medication regimen Acute Psychosis Acute
[2018-02-02] MEDS: BENZTROPINE MESYLATE 1 MG TAB PO SCH ×2 (08:30→20:58)
[2018-02-02] MEDS: HALOPERIDOL 5 MG TAB PO SCH ×2 (08:30→17:02)
[2018-02-02] MEDS: LEVOTHYROXINE 25 MCG TAB PO SCH (11:56)
[2018-02-02] MEDS: DIVALPROEX ER 500 MG TAB PO SCH (20:58)
[2018-02-03] MEDS: NICOTINE POLACRILEX 2 MG GUM B PRN (06:22)
[2018-02-03] MEDS: ACETAMINOPHEN 325 MG TAB PO PRN (06:40)
--- NOTE | 2018-02-03 07:22 | SOAPPROG ---
SOAP Progress Note Assessment/Plan: Assessment: Schizoaffective disorder. Currently delusional. Improvement noted; notably willingness to take medications as prescribed (see subjective/objective note). Less irritable. Patient is not safe to discharge at this time as patient continues to exhibit signs of psychosis. Patient requires continued inpatient care because of current psychosis, and requires inpatient level of care to stabilize in order to no longer be gravely disabled due to mental illness. Patient could benefit from continued inpatient hospitalization for crisis stabilization, safety, and medication evaluation. Plan: Review psychotropic medication treatment informed consent and recommendations. After reviewing options, risks, and benefits patient agrees to continue current medications. No medication changes at this time as more time is needed to determine ongoing tolerability and efficacy. Plan is to continue to observe patient for response and side effects from medications, and ongoing monitoring and evaluation. Depakote level for Wednesday AM. Next steps are for patient to meet with rn homecare to plan a safe discharge plan and establish outpatient services for ongoing treatment. Consider discharge Wednesday after Depakote level if patient is in stable condition, safe, and has a safe discharge plan. PSYCHOTROPIC MEDICATION TREATMENT INFORMED CONSENT and RECOMMENDATIONS: Review nature of condition, diagnosis, and prognosis. Review nature and purpose of psychotropic medication treatment. Review type of psychotropic medications being ordered. Review risk and benefits of psychotropic medication treatment. Review probable length of time patient will need to take medications. Review risk and benefits of not undergoing psychotropic medication treatment. Review alternative treatments to psychotropic medications. Review psychotropic medications contraindications, drug-drug interactions, side effects, and importance of reporting any side effects to a psychiatric provider or nurse during inpatient hospitalization, and upon discharge to patients psychiatric outpatient provider, primary care provider, or other health wound care physician. Review importance of asking a nurse, psychiatric provider, or primary care provider any questions or problems concerning the psychotropic medications. Verify patient understands the information that has been provided, and understands, accepts, and agrees to psychotropic medications. Review patients safety plan and importance of patient to report to staff while hospitalized if patient is ever a danger to self/others, or unable to care for self, and upon discharge, the importance for patient to contact [facility] or 1, or go to the nearest emergency room, if patient is ever a danger to self/others, or unable to care for self. Recommend that upon discharge patient establish medication management treatment with a psychiatric provider, establishes routine therapy appointments, and follow-up with primary care provider. Verify patient understands and agrees to these recommendations. 02/03/18 07:21 Subjective: Following up with patient for evaluation of psychosis, dada, and safety. Patient reports, "I took the Depakote last night." Patient expresses motivation to continue to take medications as prescribed. Objective: Vital Signs Temp Pulse Resp BP Pulse Ox 36.7 C 96 16 119/58 L 92 02/03/18 06:00 02/03/18 06:00 02/03/18 06:00 02/03/18 06:00 02/03/18 06:00 NURSING REPORT: Consulted with nursing for update on patients progress in treatment. Nurses report patient is not engaged in treatment, is attending some groups, slept 8 hours, expresses the following psychiatric symptoms: none, exhibits the following psychiatric symptoms: delusional, irritable; is eating all meals. Patient reports no report of side effects, with no s/s of EPS/ akathisia, and denies SI/HI, A/V hallucinations. 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 Wilkinson. The patient is a well-nourished female looking stated chronological age. Attire is appropriate and dress is casual. Grooming status is inappropriate and disheveled. Ambulation is independent. Gait is normal and coordinated. Posture is normal and relaxed. Eye contact is appropriate, and adequate. Motor activity is appropriate with purposeful, organized, coordinated movements ; with no involuntary movements. Attitude is cooperative and friendly. Patient appears more attentive and relates well to this interviewer. Language production is spontaneous. R/R/V normal. Articulation is clear. Patient reports mood as okay with blunted, and incongruent, inappropriate affect. Patients thought process is non-linear, disorganized, illogical. Associations are loose. Patient does not report suicidal/homicidal thoughts, ideas, or plans. Patient denies auditory, visual hallucinations. Patient reports delusions. Patient does not appear to be attending to internal stimuli. Patients attention and concentration are poor. Patient is oriented to person, place. Patients insight is poor. Patients judgment is poor. - Time Spent With Patient Time Spent With Patient: 15 minutes, met with patient individually. - Pending Discharge Pending Discharge Within 24 Hours: No Pending Discharge Within 48 Hours: No ICD10 Worksheet Patient Problems: Problems Problem Status Onset Schizoaffective disorder Acute Chronic obstructive lung disease Active Tobacco user Active Noncompliance with medication regimen Acute Psychosis Acute
[2018-02-03] MEDS: LEVOTHYROXINE 25 MCG TAB PO SCH (07:44)
[2018-02-03] MEDS: HALOPERIDOL 5 MG TAB PO SCH ×2 (08:23→17:15)
[2018-02-03] MEDS: BENZTROPINE MESYLATE 1 MG TAB PO SCH ×2 (08:23→21:11)
[2018-02-03] MEDS: DIVALPROEX ER 500 MG TAB PO SCH (21:11)
--- NOTE | 2018-02-04 06:53 | SOAPPROG ---
SOAP Progress Note Assessment/Plan: Assessment: Schizoaffective disorder. Currently delusional. Improvement noted; notably willingness to take medications as prescribed (see subjective/objective note). Less irritable. Patient is not safe to discharge at this time as patient continues to exhibit signs of psychosis. Patient requires continued inpatient care because of current psychosis, and requires inpatient level of care to stabilize in order to no longer be gravely disabled due to mental illness. Patient could benefit from continued inpatient hospitalization for crisis stabilization, safety, and medication evaluation. Plan: Review psychotropic medication treatment informed consent and recommendations. After reviewing options, risks, and benefits patient agrees to continue current medications. No medication changes at this time as more time is needed to determine ongoing tolerability and efficacy. Plan is to continue to observe patient for response and side effects from medications, and ongoing monitoring and evaluation. Depakote level for Wednesday AM. Next steps are for patient to meet with physician primary care sports medicine to plan a safe discharge plan and establish outpatient services for ongoing treatment. Consider discharge Wednesday after Depakote level if patient is in stable condition, safe, and has a safe discharge plan. PSYCHOTROPIC MEDICATION TREATMENT INFORMED CONSENT and RECOMMENDATIONS: Review nature of condition, diagnosis, and prognosis. Review nature and purpose of psychotropic medication treatment. Review type of psychotropic medications being ordered. Review risk and benefits of psychotropic medication treatment. Review probable length of time patient will need to take medications. Review risk and benefits of not undergoing psychotropic medication treatment. Review alternative treatments to psychotropic medications. Review psychotropic medications contraindications, drug-drug interactions, side effects, and importance of reporting any side effects to a psychiatric provider or nurse during inpatient hospitalization, and upon discharge to patients psychiatric outpatient provider, primary care provider, or other health rn acute care. Review importance of asking a nurse, psychiatric provider, or primary care provider any questions or problems concerning the psychotropic medications. Verify patient understands the information that has been provided, and understands, accepts, and agrees to psychotropic medications. Review patients safety plan and importance of patient to report to staff while hospitalized if patient is ever a danger to self/others, or unable to care for self, and upon discharge, the importance for patient to contact [facility] or 1, or go to the nearest emergency room, if patient is ever a danger to self/others, or unable to care for self. Recommend that upon discharge patient establish medication management treatment with a psychiatric provider, establishes routine therapy appointments, and follow-up with primary care provider. Verify patient understands and agrees to these recommendations. 02/04/18 06:52 Subjective: Following up with patient for evaluation of psychosis, dada, and safety. Patient reports, "I slept better last night." Patient expresses motivation to continue to take medications as prescribed. Objective: Vital Signs Temp Pulse Resp BP Pulse Ox 36.7 C 96 16 119/58 L 92 02/03/18 06:00 02/03/18 06:00 02/03/18 06:00 02/03/18 06:00 02/03/18 06:00 NURSING REPORT: Consulted with nursing for update on patients progress in treatment. Nurses report patient is not engaged in treatment, is attending some groups, slept 8 hours, expresses the following psychiatric symptoms: none, exhibits the following psychiatric symptoms: delusional, irritable; is eating all meals. Patient reports no report of side effects, with no s/s of EPS/ akathisia, and denies SI/HI, A/V hallucinations. SUPERVISOR CRACK OFF UPDATE: currently working to set-up appointments with OP provider, Dr. Wilkinson. The patient is a well-nourished female looking stated chronological age. Attire is appropriate and dress is casual. Grooming status is inappropriate and disheveled. Ambulation is independent. Gait is normal and coordinated. Posture is normal and relaxed. Eye contact is appropriate, and adequate. Motor activity is appropriate with purposeful, organized, coordinated movements ; with no involuntary movements. Attitude is cooperative and friendly. Patient appears more attentive and relates well to this interviewer. Language production is spontaneous. R/R/V normal. Articulation is clear. Patient reports mood as okay with blunted, and incongruent, inappropriate affect. Patients thought process is non-linear, disorganized, illogical. Associations are loose. Patient does not report suicidal/homicidal thoughts, ideas, or plans. Patient denies auditory, visual hallucinations. Patient reports delusions. Patient does not appear to be attending to internal stimuli. Patients attention and concentration are poor. Patient is oriented to person, place. Patients insight is poor. Patients judgment is poor. - Time Spent With Patient Time Spent With Patient: 15 minutes, met with patient individually. - Pending Discharge Pending Discharge Within 24 Hours: No Pending Discharge Within 48 Hours: No ICD10 Worksheet Patient Problems: Problems Problem Status Onset Schizoaffective disorder Acute Chronic obstructive lung disease Active Tobacco user Active Noncompliance with medication regimen Acute Psychosis Acute
[2018-02-04] MEDS: NICOTINE POLACRILEX 2 MG GUM B PRN (06:57)
[2018-02-04] MEDS: ACETAMINOPHEN 325 MG TAB PO PRN (06:57)
[2018-02-04] MEDS: LEVOTHYROXINE 25 MCG TAB PO SCH (07:30)
[2018-02-04] MEDS: HALOPERIDOL 5 MG TAB PO SCH ×2 (08:23→17:22)
[2018-02-04] MEDS: BENZTROPINE MESYLATE 1 MG TAB PO SCH ×2 (08:23→20:59)
--- NOTE | 2018-02-04 13:27 | ASMTBHDC ---
Notes Note: Notes: CC confirmed client's out-patient Dr. Appointment with Dr. Wilkinson for WednesdayFebruary 11 at 2:30pm. Client's porter sample case is Finesse Ramon and can be reached at for a follow up appt. Client should discharge late next week, Wednesday or , etc. Client remains the same on the unit. Date Signed: 02/04/2018 01:26 PM Electronically Signed By:Ryan Brown
[2018-02-04] MEDS: DIVALPROEX ER 500 MG TAB PO SCH (20:59)
[2018-02-05] MEDS: ACETAMINOPHEN 325 MG TAB PO PRN (07:29)
[2018-02-05] MEDS: NICOTINE POLACRILEX 2 MG GUM B PRN (08:46)
[2018-02-05] MEDS: HALOPERIDOL 5 MG TAB PO SCH ×3 (08:46→18:09)
[2018-02-05] MEDS: BENZTROPINE MESYLATE 1 MG TAB PO SCH ×2 (08:46→20:15)
[2018-02-05] MEDS: LEVOTHYROXINE 25 MCG TAB PO SCH (08:47)
--- NOTE | 2018-02-05 14:37 | SOAPPROG ---
SOAP Progress Note Assessment/Plan: Assessment: 57 yo woman BIB [facility] after welfare check. Patient is on LTC and court ordered involuntary medications, but has missed last 9 appointments with providers at [facility]. Per Roger Brennan's note: Schizoaffective disorder. Currently delusional. Improvement noted; notably willingness to take medications as prescribed (see subjective/objective note). Less irritable. Patient is not safe to discharge at this time as patient continues to exhibit signs of psychosis. Patient requires continued inpatient care because of current psychosis, and requires inpatient level of care to stabilize in order to no longer be gravely disabled due to mental illness. Patient could benefit from continued inpatient hospitalization for crisis stabilization, safety, and medication evaluation. Plan: 02/05/18 14:26 1. Patient has been taking Depakote ER since 02/02/18. No physical complaints or SE's. She continues to complain that VPA will be harmful for her fetus (she is not ). 2. Patient is on LTC and COM. 3. VPA level ordered on 02/07/18. 4. Given the length of time that patient has been off Trinza, she will need to re-start Invega Sustenna and then transition back to Trinza. However, this MD has concerns about patient taking both a CARBAJAL SGA and a typical neuroleptic, given the increased risk of adverse effects and lack or proven efficacy for this regimen. Patient has significant h/o noncompliance with medications a/e/b multiple LTC's and extension of LTC's in past. Most recently Dr. Minh pearsonitioned court and court extended LTC until 04/15/18, after patient missed 9 outpatient appointments with [facility] providers. Going that long without seeing a provider and receiving depot injections means that CARBAJAL cannot be given and that patient needs to start over with PO meds. In that case, it makes little difference if patient is prescribed CARBAJAL or PO meds, since the point is getting the patient to take meds or supervising them more routinely to ensure compliance. If patient can go for 9 missed appointments before coming to hospital, there is little point in maintaining patient on CARBAJAL. It would make more sense for patient to come to clinic weekly (or even monthly for Invega Sustenna CARBAJAL) to moss picker PO meds. That way, even if patient continues to be noncompliant, her outpatient providers will have a chance to intervene sooner and possibly prevent more severe decompensation from patient going > 3 mos off meds. 5. Likely to d/c next week back to respite care with f/u at [facility]. Subjective: Met with patient, reviewed chart and d/w staff. Patient is stable and does not show much change from when MD saw her last weekend. She presents as calm, pleasant, cooperative, but still delusional. She continues to report to staff that she is and is worried about effect of VPA on her fetus. No matter how many times MD and staff explain that she is not , patient continues to resist taking VPA. Staff report they have lengthy conversations with her every night about her meds. According to records, her outpatient providers insist she is delusional at baseline. She denies any SI/HI. Objective: Vital Signs Temp Pulse Resp BP Pulse Ox 36.4 C 89 14 101/65 95 02/05/18 06:00 02/05/18 06:00 02/05/18 06:00 02/05/18 06:00 02/05/18 06:00 MSE: Affect: Euthymic Mood: "Good" TP: Disorganized, tangential TC: Denies any SI/HI, no AH/VH, still delusional Insight/Judgment: Impaired - Time Spent With Patient Time Spent With Patient: 15" - Pending Discharge Pending Discharge Within 24 Hours: No Pending Discharge Within 48 Hours: No ICD10 Worksheet Patient Problems: Problems Problem Status Onset Schizoaffective disorder Acute Chronic obstructive lung disease Active Tobacco user Active Noncompliance with medication regimen Acute Psychosis Acute
--- NOTE | 2018-02-05 15:26 | ASMTBHDC ---
Notes Note: Notes: Client was in her room reading a book in bed when we met. Patient is pleasant and cooperative She is interested in knowing when her appointments are at [facility]. Patient is well groomed and clean. She talked about her roommate talking at night and keeping her up. She reports that she did ask her roommate to not talk at night. Client slept 9 hours last night. Staff reports that she is taking her medications and still has delusions about being . 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 Date Signed: 02/05/2018 03:25 PM Electronically Signed By:Jenn Redding
[2018-02-05] MEDS: DIVALPROEX ER 500 MG TAB PO SCH (20:15)
[2018-02-06] MEDS: LEVOTHYROXINE 25 MCG TAB PO SCH (05:54)
[2018-02-06] MEDS: NICOTINE POLACRILEX 2 MG GUM B PRN (05:54)
[2018-02-06] MEDS: ACETAMINOPHEN 325 MG TAB PO PRN (05:54)
[2018-02-06] MEDS: BENZTROPINE MESYLATE 1 MG TAB PO SCH ×2 (08:10→17:26)
[2018-02-06] MEDS: HALOPERIDOL 5 MG TAB PO SCH ×2 (08:10→17:26)
--- NOTE | 2018-02-06 14:54 | SOAPPROG ---
SOAP Progress Note Assessment/Plan: Assessment: 57 yo woman BIB [facility] after welfare check. Patient is on LTC and court ordered involuntary medications, but has missed last 9 appointments with providers at [facility]. Per Roger Brennan's note: Schizoaffective disorder. Currently delusional. Improvement noted; notably willingness to take medications as prescribed (see subjective/objective note). Less irritable. Patient is not safe to discharge at this time as patient continues to exhibit signs of psychosis. Patient requires continued inpatient care because of current psychosis, and requires inpatient level of care to stabilize in order to no longer be gravely disabled due to mental illness. Patient could benefit from continued inpatient hospitalization for crisis stabilization, safety, and medication evaluation. Plan: 02/05/18 14:26 1. Patient has been taking Depakote ER since 02/02/18. No physical complaints or SE's. She continues to complain that VPA will be harmful for her fetus (she is not ). 2. Patient is on LTC and COM. 3. VPA level ordered on 02/07/18. 4. Given the length of time that patient has been off Trinza, she will need to re-start Invega Sustenna and then transition back to Trinza. However, this MD has concerns about patient taking both a CARBAJAL SGA and a typical neuroleptic, given the increased risk of adverse effects and lack or proven efficacy for this regimen. Patient has significant h/o noncompliance with medications a/e/b multiple LTC's and extension of LTC's in past. Most recently Dr. Minh pearsonitioned court and court extended LTC until 04/15/18, after patient missed 9 outpatient appointments with [facility] providers. Going that long without seeing a provider and receiving depot injections means that CARBAJAL cannot be given and that patient needs to start over with PO meds. In that case, it makes little difference if patient is prescribed CARBAJAL or PO meds, since the point is getting the patient to take meds or supervising them more routinely to ensure compliance. If patient can go for 9 missed appointments before coming to hospital, there is little point in maintaining patient on CARBAJAL. It would make more sense for patient to come to clinic weekly (or even monthly for Invega Sustenna CARBAJAL) to corn picker PO meds. That way, even if patient continues to be noncompliant, her outpatient providers will have a chance to intervene sooner and possibly prevent more severe decompensation from patient going > 3 mos off meds. 5. Likely to d/c next week back to respite care with f/u at [facility]. 02/06/18 14:50 1. Patient continues to take VPA and Haldol, but still complains meds are bad for her "baby." 2. CC to find out if patient can return to respite care facility where she was living prior to admit. If not, patient will be homeless and will need additional resources. 3. VPA level on Wednesday. 4. Possible d/c next week. F/u with Dr. Wilkinson on 02/11/18 and [facility] providers. Subjective: Met with patient, reviewed chart and d/w staff. Patient continues to present as stable, cooperative and pleasant. However, she remains delusional and has minimal skills necessary for independent living. MD recommends patient return to respite care or another stepdown placement for continued stabilization. She is doing well in controlled environment currently, but likely to decompensate quickly without structure and routine. Objective: Vital Signs Temp Pulse Resp BP Pulse Ox 36.3 C 98 16 115/61 97 02/06/18 06:00 02/06/18 06:00 02/06/18 06:00 02/06/18 06:00 02/06/18 06:00 MSE: Affect: Euthymic Mood: "OK" TP: Disorganized, illogical TC: Denies any SI/HI, no AH/VH, still delusional and some paranoia Insight/Judgment: Impaired - Time Spent With Patient Time Spent With Patient: 15" - Pending Discharge Pending Discharge Within 24 Hours: No Pending Discharge Within 48 Hours: Yes Pending Discharge Date: 02/08/18 (Possible d/c on Wednesday) Pending Discharge Time: 11:00 ICD10 Worksheet Patient Problems: Problems Problem Status Onset Schizoaffective disorder Acute Chronic obstructive lung disease Active Tobacco user Active Noncompliance with medication regimen Acute Psychosis Acute
[2018-02-06] MEDS: DIVALPROEX ER 500 MG TAB PO SCH (17:26)
[2018-02-07] MEDS: LEVOTHYROXINE 25 MCG TAB PO SCH ×2 (05:48→08:41)
[2018-02-07] MEDS: NICOTINE POLACRILEX 2 MG GUM B PRN (06:31)
[2018-02-07] MEDS: ACETAMINOPHEN 325 MG TAB PO PRN (06:31)
--- NOTE | 2018-02-07 08:26 | SOAPPROG ---
SOAP Progress Note Assessment/Plan: Assessment: Schizoaffective disorder. Improvement noted; notably willingness to take medications as prescribed (see subjective/objective note). Less irritable; less delusional. Likely at baseline from OP psychiatrist's report. Plan: Review psychotropic medication treatment informed consent and recommendations. After reviewing options, risks, and benefits patient agrees to continue current medications. No medication changes at this time as more time is needed to determine ongoing tolerability and efficacy. Plan is to continue to observe patient for response and side effects from medications, and ongoing monitoring and evaluation. Depakote level drawn this morning, awaiting results. Next steps are for patient to meet with md do resident urgent care to plan a safe discharge plan and establish outpatient services for ongoing treatment. Consider discharge tomorrow if patient is in stable condition, safe, and has a safe discharge plan. PSYCHOTROPIC MEDICATION TREATMENT INFORMED CONSENT and RECOMMENDATIONS: Review nature of condition, diagnosis, and prognosis. Review nature and purpose of psychotropic medication treatment. Review type of psychotropic medications being ordered. Review risk and benefits of psychotropic medication treatment. Review probable length of time patient will need to take medications. Review risk and benefits of not undergoing psychotropic medication treatment. Review alternative treatments to psychotropic medications. Review psychotropic medications contraindications, drug-drug interactions, side effects, and importance of reporting any side effects to a psychiatric provider or nurse during inpatient hospitalization, and upon discharge to patients psychiatric outpatient provider, primary care provider, or other health child care development specialist. Review importance of asking a nurse, psychiatric provider, or primary care provider any questions or problems concerning the psychotropic medications. Verify patient understands the information that has been provided, and understands, accepts, and agrees to psychotropic medications. Review patients safety plan and importance of patient to report to staff while hospitalized if patient is ever a danger to self/others, or unable to care for self, and upon discharge, the importance for patient to contact [facility] or [facility], or go to the nearest emergency room, if patient is ever a danger to self/others, or unable to care for self. Recommend that upon discharge patient establish medication management treatment with a psychiatric provider, establishes routine therapy appointments, and follow-up with primary care provider. Verify patient understands and agrees to these recommendations. 02/07/18 08:31 Subjective: Following up with patient for evaluation of psychosis, ddaa, and safety. Patient reports, "I am taking my medications." Patient expresses motivation to continue to take medications as prescribed. Objective: Vital Signs Temp Pulse Resp BP Pulse Ox 36.3 C 106 H 16 169/59 H 93 02/07/18 06:00 02/07/18 06:00 02/07/18 06:00 02/07/18 06:00 02/07/18 06:00 NURSING REPORT: Consulted with nursing for update on patients progress in treatment. Nurses report patient is not engaged in treatment, is attending some groups, slept 8 hours, expresses the following psychiatric symptoms: none, exhibits the following psychiatric symptoms: less delusional, less irritable; is eating all meals and attending to ADLs. Patient reports no report of side effects, with no s/s of EPS/akathisia, and denies SI/HI, A/V hallucinations. MEDICAL LANGUAGE SPECIALIST UPDATE: currently working to set-up appointments with OP provider, Dr. Wilkinson. Checking to determine if her apartment is still available for her to return to when she discharges. The patient is a well-nourished female looking stated chronological age. Attire is appropriate and dress is casual. Grooming status is inappropriate and disheveled. Ambulation is independent. Gait is normal and coordinated. Posture is normal and relaxed. Eye contact is appropriate, and adequate. Motor activity is appropriate with purposeful, organized, coordinated movements ; with no involuntary movements. Attitude is cooperative and friendly. Patient appears more attentive and relates well to this interviewer. Language production is spontaneous. R/R/V normal. Articulation is clear. Patient reports mood as okay with blunted, and incongruent, inappropriate affect. Patients thought process is non-linear, disorganized, illogical. Associations are loose. Patient does not report suicidal/homicidal thoughts, ideas, or plans. Patient denies auditory, visual hallucinations. Patient reports delusions. Patient does not appear to be attending to internal stimuli. Patients attention and concentration are poor. Patient is oriented to person, place. Patients insight is poor. Patients judgment is poor. - Time Spent With Patient Time Spent With Patient: 15 minutes, met with patient individually. - Pending Discharge Pending Discharge Within 24 Hours: Yes Pending Discharge Within 48 Hours: No Pending Discharge Date: 02/08/18 Pending Discharge Time: 11:00 ICD10 Worksheet Patient Problems: Problems Problem Status Onset Schizoaffective disorder Acute Chronic obstructive lung disease Active Tobacco user Active Noncompliance with medication regimen Acute Psychosis Acute
[2018-02-07] MEDS: BENZTROPINE MESYLATE 1 MG TAB PO SCH ×2 (08:41→21:00)
[2018-02-07] MEDS: HALOPERIDOL 5 MG TAB PO SCH ×2 (08:41→18:05)
--- NOTE | 2018-02-07 13:02 | ASMTBHDC ---
Notes Note: Notes: CC meets with client and she presents better than previous days. Also, confirmed all of her follow up appts with providers (see below). CC will walk client over to her therapy appt tomorrow. Follow up with: [facility] [address] [place] [address] Next Appt (Therapist): with Finesse WednesdayFebruary 08 (02/08/18) at 9am at [facility] CC will walk client over Next Appt (Medication Provider): with Dr. Wilkinson Wednesday 3th (02/11/18) at 2:30pm Date Signed: 02/07/2018 01:01 PM Electronically Signed By:Ryan Brown
[2018-02-07] MEDS: DIVALPROEX ER 500 MG TAB PO SCH (21:00)
[2018-02-08] MEDS: NICOTINE POLACRILEX 2 MG GUM B PRN (05:31)
[2018-02-08] MEDS: LEVOTHYROXINE 25 MCG TAB PO SCH (05:31)
[2018-02-08] MEDS: ACETAMINOPHEN 325 MG TAB PO PRN (05:31)
[2018-02-08 06:52] VITALS: BP 110/57
[2018-02-08] MEDS: BENZTROPINE MESYLATE 1 MG TAB PO SCH (08:35)
[2018-02-08] MEDS: HALOPERIDOL 5 MG TAB PO SCH (08:35)
--- NOTE | 2018-02-08 12:31 | BDS ---
[f rep st] BEHAVIORAL HEALTH DISCHARGE SUMMARY REASON FOR ADMISSION: From the ED note dated 01/27/2018, the patient presented on a court order that reported she had not shown up for her last 9 medication treatments. The patient has a history of schizoaffective bipolar type. From the [facility] evaluation dated 01/27/2018, the patient is an unemployed female who is an open patient with [facility] and lives at [facility]. The patient was brought to the [facility] ED by Grace amezcua on an order for pickup , and patient has not been adherent with her medications for 2 weeks and missed her last appointment with Dr. Wilkinson. The patient is on a long-term certification. The patient was admitted involuntarily on a court-ordered evaluation and a long-term certification due to being gravely disabled due to a mental illness. The patient was admitted for safety, crisis stabilization, and medication evaluation. ADMITTING DIAGNOSIS: Schizoaffective disorder, bipolar type. ADMISSION PHYSICAL EXAM: Patient was seen on 01/28/[address] De Santiago for an Internal Medicine consultation for medical clearance for inpatient Behavioral Health stay. Dr. De Santiago reported he saw no medical contraindications to the patient's continued stay on the inpatient behavioral health unit or to any psychiatric medications or procedures. For further details, please refer to Dr. De Santiago's note dated 01/28/2018. ADMISSION LABS: From the emergency department, CBC revealed elevated hemoglobin and hematocrit at 17 and 49, and otherwise was within normal limits. Serum chemistry revealed normal renal function and electrolytes, normal liver functions. Hemoglobin A1c was 5.6. Cholesterol was 239, LDL 177, and HDL 36. Toxicology screen in the serum was negative for ethyl alcohol, and in the urine was negative for any substances of abuse. Valproic acid level from 02/07/2018 was 77.8 at Depakote ER 1,500 mg po QHS. MAJOR PROCEDURES OR TESTS: None. HOSPITAL COURSE: The most prominent symptoms and behaviors while the patient was here were agitation and irritability. The patient was delusional and disorganized upon admission. Target symptoms: Senait and psychosis. Treatment modalities utilized were milieu and group therapy. Haldol 5 mg p.o. daily and 10 mg p.o. daily at 1700 were started to target psychosis symptoms, was tolerated with no report of side effects. Cogentin 1 mg p.o. b.i.d. was started for EPS prophylaxis. Patient was also on Invega Trinza dose of 819 mg every 3 months. The patient's next injection to be administered by OP provider , and patient did not require injection of this long-acting injectable during her hospitalization. Depakote ER 1500 mg p.o. q.h.s. was started to target senait symptoms. It was tolerated with no report of side effects and with good response. The patient's valproic acid level at this dose was drawn yesterday morning, and the results were 77.8. The patient has improved considerably and reports she has improved since admission. States to be in a condition to discharge. The patient reports she feels safe to discharge, and she contracts for safety. The patient agrees to continue current medications and to follow up with her outpatient provider. Patient's response to treatment was good. There were no adverse or unexpected results of treatment. The patient was safe throughout her stay and was appropriate with staff and other patients. The treatment team consensus is the patient is in stable condition and is safe to discharge today. CONDITION ON DISCHARGE: Patient is in stable condition and is no longer a danger to self or others, and is not gravely disabled due to mental illness. Patient is no longer in need of inpatient level of care, and can be safely and effectively treated within the community. The patients level of risk at time of discharge is low based on the risk assessment below following this discharge summary. MSE: The patient is casually dressed and with good hygiene, and looks stated age. Patient is sitting, posture is upright, and position is relaxed. Patient appears awake, alert, and responds appropriately and reasonably during interview. Patient is engaged, relates well to interviewer, and emotional facial expression is appropriate to situation and changes appropriately with topic. Patient is cooperative, makes comfortable eye contact, and movements are voluntary, deliberate, coordinated, and smooth and even with no inappropriate movements. Patient makes laryngeal sounds effortlessly and shares conversation appropriately; pace of conversation is appropriate, and stream of talking is fluent; articulation is clear and understandable; word choice is effortless and appropriate for education level; completes sentences, occasionally pausing to think; rate and volume are appropriate for interview and setting. Patient reports mood as euthymic. Patients affect is stable with full variable range, congruent with mood, and appropriate to speech and circumstances. Patient has linear and logical thinking, with no loose associations, tangential thought, thought blocking, concrete thinking, or any other signs of formal thought disorder. Patient denies suicidal and homicidal ideation, and denies hallucinations; patient reports delusions (according to OP psych, patient is delusional at baseline when med adherent). Patient appears to be a reliable historian with fair judgement and fair insight into current condition. Patient has no apparent dysfunction in recent or remote memory noted , and no evidence of gross cognitive dysfunction noted at any point during the interview. DISCHARGE DIAGNOSIS: Schizoaffective disorder, bipolar type. CURRENT MEDICATIONS: Simvastatin 40 mg p.o. q.h.s., Haldol 5 mg p.o. daily, Haldol 10 mg p.o. daily at 1700., Cogentin 1 mg p.o. b.i.d., levothyroxine 25 mcg p.o. daily, Invega Trinza 819 mg IM q. 3 months, Depakote ER 1500 mg p.o. q.h.s., albuterol 2 puffs IH q.4 hours p.r.n. At the time of discharge, the patient reported, "I can get my medications from [facility] at the [facility] , and I do not need any prescriptions." Patient's medications were reviewed at time of discharge for accuracy and understanding. DISPOSITION: The patient left the hospital today independently and voluntarily with plans to return to her apartment and plans to follow up with her outpatient providers at [facility] at the [facility]. FOLLOWUP: respiratory coordinator reports the appropriate outpatient follow-up services have been established and outpatient appointments have been scheduled. The patient received written instructions with times and dates of outpatient follow-up appointments. The following follow-up recommendations were provided to the patient at discharge: Continue psychotropic medications as prescribed and attend appointments as scheduled. Report any side effects to a psychiatric outpatient provider, a primary care provider, or other health resident care director. Address any questions or problems concerning the psychotropic medications with a psychiatric outpatient provider, a primary care provider, or other health resident care director. Contact [facility] or [facility], or go to the nearest emergency room, if you are ever a danger to yourself/others, or unable to care for yourself. As soon as possible, establish a routine medication management treatment with a psychiatric provider, establish routine therapy appointments, and follow-up with a primary care provider. LEGAL COURSE: The patient was admitted on a court order. The patient is on a long-term certification. Patient discharged today from the hospital independently and voluntarily. Long-term certification to be continued. ATTITUDE AT TIME OF DISCHARGE: The patient states, "I'm ready to go." The patient's attitude was positive at time of discharge, and patient reports looking forward to discharging today. The patient reports she feels safe to discharge, is in stable condition, and contracts for safety. Patient states she will continue medications as prescribed and establish medication management treatment with her outpatient provider after discharge. The patient reports she understands the information that has been provided to her, and she understands, accepts and agrees to psychotropic medications. The patient describes internal protective factors as the coping skills she has learned while hospitalized here, and she plans to continue to practice these coping skills after discharge. LABS AND STUDIES: There were no pending labs or studies at time of discharge. ADVANCE DIRECTIVES: There were no advance directives on file, and patient was full code during hospitalization. The following psychotropic medication treatment informed consent and recommendations were provided to the patient at time of discharge. Patient reports he understands, accepts, and agrees to the information that has been provided. PSYCHOTROPIC MEDICATION TREATMENT INFORMED CONSENT and RECOMMENDATIONS: Review nature of condition, diagnosis, and prognosis. Review nature and purpose of psychotropic medication treatment. Review type of psychotropic medications being prescribed. Review risk and benefits of psychotropic medication treatment. Review probable length of time will need to take medications. Review risk and benefits of not undergoing psychotropic medication treatment. Review alternative treatments to psychotropic medications. Review psychotropic medications contraindications, side effects, and importance of reporting any side effects to a psychiatric provider, primary care provider, or other health resident care director. Review importance of her asking a psychiatric provider or primary care provider any questions or problems concerning the psychotropic medications. Review importance of reporting to a psychiatric provider, primary care provider, or other health resident care director if she plans to or becomes . Review safety plan and the importance to contact [facility] or 1 , or go to the nearest emergency room, if ever a danger to yourself/others, or unable to care for yourself. Recommend upon discharge to establish routine medication management treatment with a psychiatric provider, establish routine therapy appointments, and follow-up with a primary care provider. Verify patient understands, accepts, and agrees to the information that has been provided. /[id number]/MODL [id number]
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
== END 2018-02-08 08:47 | disposition home or self-care (01) | DRG 885 ==
LOC: BBEH 21:01
PROVIDERS: ADMIT Psychiatry & Neurology Behavioral Neurology & Neuropsychiatry; ATTEND Registered Nurse
DX: F25.0 Schizoaffective disorder, bipolar type (principal); J44.9 Chronic obstructive pulmonary disease, unspecified; E78.5 Hyperlipidemia, unspecified; F17.200 Nicotine dependence, unspecified, uncomplicated; E66.9 Obesity, unspecified; K59.00 Constipation, unspecified; D75.1 Secondary polycythemia
CPT/HCPCS: 80305; G0480